=== PATIENT | female | born 1980 | race Two or more races ===

== ENCOUNTER 2024-08-30 11:47 | Emergency (ER) | payer OTHER ==
[~2024-08-30] VITALS: Ht 154.9 cm; Wt 72.6 kg
[2024-08-30 12:30] VITALS: BP 116/80; O2SAT 99
[2024-08-30] MEDS ORDERED: KETOROLAC TROMETHAMINE 60 MG VIAL IM ONE ×2 (14:45→15:25)
[2024-08-30 15:46] LABS: HEMATOCRIT 39.4 % (36.0-45.00); HEMOGLOBIN 13.2 g/dL (12.0-15.00); MEAN CELL VOLUME 81.8 fL (80.00-100.00); MEAN CORPUSCULAR HEMOGLOBIN 27.3 pg (27.00-32.0); MEAN CORPUSCULAR HGB CONC 33.4 g/dl (32.0-36.0); PLATELET COUNT 246 K/uL (150-450); RED BLOOD COUNT 4.82 M/uL (4.00-6.00); RED CELL DISTRIBUTION WIDTH 14.8 % (11.5-14.5)
[2024-08-30 16:03] LABS: ALBUMIN 3.9 gm/dL (3.4-5.0); BILIRUBIN TOTAL 0.29 mg/dL (0.3-1.2); CALCIUM 9.1 mg/dL (8.5-10.1); CREATININE SERUM 0.62 mg/dL (0.55-1.02); GFR 104.57; GLOBULINA 3.4 G/DL (2.4-3.5); POTASSIUM 3.85 mEq/L (3.5-5.1); TOTAL PROTEIN 7.3 gm/dL (6.4-8.2)
== END 2024-08-30 18:30 | disposition home or self-care (01) ==
LOC: ER 11:48
PROVIDERS: Preventive Medicine Public Health & General Preventive Medicine
DX: H57.12 Ocular pain, left eye (principal); R51.9 Headache, unspecified
CPT/HCPCS: 36415; 70450; 96372; 99284; J1885

== ENCOUNTER 2025-01-26 16:22 | Emergency (ER) | payer OTHER ==
[~2025-01-26] VITALS: Ht 152.4 cm; Wt 74.8 kg
[2025-01-26 17:14] VITALS: BP 126/75; O2SAT 100
== END 2025-01-26 18:10 | disposition home or self-care (01) ==
LOC: ER 16:22
DX: R21 Rash and other nonspecific skin eruption (principal)